=== PATIENT | female | born 1945 | race Caucasian/White ===

== ENCOUNTER → 2024-11-30 12:52 | Outpatient (CLI) | payer MEDICARE, OTHER, SELFPAY | PROVIDERS: Family Provider Physician Assistant; PCP Physician Assistant; Referring Provider Psychiatry & Neurology Neurology; Visit Provider Psychiatry & Neurology Neurology | DX: G62.9 Polyneuropathy, unspecified (principal); R29.898 Other symptoms and signs involving the musculoskeletal system; R26.89 Other abnormalities of gait and mobility; R25.3 Fasciculation; R25.2 Cramp and spasm | CPT/HCPCS: 95886; 95911 ==